=== PATIENT | male | born 1985 | race Caucasian/White ===

== ENCOUNTER 2023-01-07 19:40 | Emergency (ER) | payer OTHER ==
[~2023-01-07] VITALS: Ht 185.4 cm; Wt 105.0 kg
[2023-01-07 19:50] VITALS: BP 147/89
[2023-01-07 22:10] LABS: BASOPHILS % 0.8 % (0.0-2.0); EOSINOPHILS % 0.6 % (0.0-5.0); HEMATOCRIT. 39.7 % (42.0-52.0); HEMOGLOBIN. 14.4 g/dL (14.0-18.0); LYMPHOCYTES % 25.7 % (20.0-50.0); MEAN CORPUSCULAR VOLUME 96.6 fL (80.0-94.0); MONOCYTES % 9.6 % (2.0-8.0); NEUTROPHILS % 63.3 % (40.0-76.0); PLATELET 247 x1000/uL (130-400); RED BLOOD CELL COUNT 4.11 mill/uL (4.7-6.1); RED CELL DISTRIBUTION WIDTH 13.1 % (11.6-14.6)
[2023-01-07 22:14] LABS: CHLORIDE 104 mEq/L (98-107)
[2023-01-07 22:27] LABS: CREATINE KINASE 134 IU/L (39-308)
[2023-01-07 23:55] LABS: PROTHROMBIN TIME 11.2 sec (9.6-11.0)
== END 2023-01-07 23:27 | disposition home or self-care (01) ==
LOC: ER 19:40
DX: R53.1 Weakness (principal); R00.0 Tachycardia, unspecified; I10 Essential (primary) hypertension; Z68.30 Body mass index [BMI] 30.0-30.9, adult
CPT/HCPCS: 36415; 71045; 80053; 82550; 84484; 85025; 99284